=== PATIENT | female | born 1985 | race Two or more races ===

== ENCOUNTER 2016-11-03 08:59 | Emergency (ER) | payer MEDICAID ==
[2016-11-03 09:18] VITALS: TEMP 98.2; BMI 23.6
[2016-11-03] MEDS ORDERED: ONDANSETRON HCL 4 MG ODT TAB PO ONE (10:14)
[2016-11-03] MEDS ORDERED: HYDROmorphone 1 MG INJECTION IM ONE (10:14)
[2016-11-03] MEDS ORDERED: AMOXICILLIN/CLAVULANATE 875 MG TAB PO ONE (10:14)
[2016-11-03] MEDS ORDERED: PREDNISONE 20 MG TAB PO ONE (10:15)
--- NOTE | 2016-11-03 10:24 | EDPRACDOC ---
- General Information Chief Complaint: Headache Stated Complaint: SINUS PROBLEM Time Seen by Provider: 11/03/16 10:11 Information Source: Patient Mode Of Arrival: Car Home Medications: Home Medications Oxycodone HCl/Acetaminophen [Percocet 5-325 mg Tablet] 1 - 2 tab PO Q4H PRN #30 tab 09/05/15 Amoxicillin/Clavulanate Potas. [Augmentin] 875 mg PO BID #20 tab 11/03/16 Ketorolac Tromethamine [Toradol] 10 mg PO Q6H PRN #20 tab 11/03/16 Prednisone [Deltasone, Orasone] 20 mg PO BID #12 tab 11/03/16 Tramadol HCl [Ultram] 50 mg PO Q6H #14 tab 11/03/16 Allergies/Adverse Reactions: Allergies Allergy/AdvReac Type Severity Reaction Status Date / Time No Known Allergies Allergy Verified 11/03/16 09:34 - History of Present Illness Onset: 4 days HPI: PT PRESENTS DUE TO HEADACHE DUE TO FACIAL PRESSURE AND PAIN FOR THE PAST 4 DAYS. STATES SHE HAS BEEN RUNNING FEVER ON AND OFF, NAUSEATED, GREEN DRAINAGE. PT VERY UGLY WITH STAFF AND VERBALLY ABUSIVE. Location: Reports: Frontal Pain Quality: Reports: Moderate Modifying Factors: worse with: Medication, Exposure to light, Cold therapy, Immobilization, Movement, Rest Prior work up: Denies: NO, O, CT, LP, MRI, Neurologist Relevant History of: Reports: None Associated Signs and Symptoms: Reports: Facial Pain, Nausea/Vomiting ED Past Medical History - History Reviewed Yes Nurses notes reviewed and agree except as marked - Patient Medical History Cardiac History: Reports: Hypertension Psychological History: Denies: Depression Additional Past Medical History: OSTEOMYELITIS OF RIGHT FEMUR - Social Medical History Smoking Status: Former smoker EDM Review of Systems - Review of Systems ROS Negative Except as Marked: Yes All systems reviewed and were negative except as marked - Physical Exam Constitutional: Alert Oriented to: Time, Person, Place Last recorded Vital Signs: Last Vital Signs Temp 98.2 F 11/03/16 09:13 Pulse 61 11/03/16 09:13 Resp 18 11/03/16 09:13 BP 108/52 L 11/03/16 09:13 Pulse Ox 98 11/03/16 09:13 Oxygen Pulse Oxygen Saturation 98 O2 Device Oxygen Flow Rate Fraction of Inspired Oxygen ( FIO2) - HEENT Head: Normal ( normocephalic) Eye Exam: Normal (PERRL, EOMI, Sclera white) Oropharynx: Normal (Pharynx:Moist without exudate,Gums-no swelling) Tympanic Membrane: Normal Nose: Congestion Neck: Normal (FROM, trachea at midline) - Respiratory/Cardiovascular Respiratory: Normal - CTA (BBS clear to auscultation without adventitious sounds ) Cardiovascular: Normal (RRR without murmur, gallop or rub) - GI Auscultation: Normal (NABS) Palpation: Normal (Soft,No rebound or guarding, non distended) Tenderness: Non tender Thao's Sign: Negative Rectal Exam: Deferred - Musculoskeletal Back: Normal (Non-Tender) Extremities: Normal (Normal tone, Pulses 2+ No cyanosis or edema, FROM) - Integumentary Skin: Normal, Warm, Dry Lymphatics: Normal (no adenopathy) - Neurologic Memory Impaired: Normal Motor Function: Normal (Normal tone, Pulses 2+ No cyanosis or edema, FROM) Cranial Nerve: Normal (CN II-X11 intact sensation, strength 5/5) Cerebellar: Normal Mood Description: Normal Perception: Normal - Differential Diagnosis Sinusitis Decision Time to Discharge: 10:24 - Departure Disposition: Home Condition: Stable Final Diagnosis: Sinus headache Instructions: Sinusitis (ED) Education/Counseling Given To: Patient Education/Counseling Given Regarding: Diagnosis, Treatment, Prognosis, Follow Up Referrals: Ruben Bowen MD [Primary Care Provider] - One Week Prescriptions: New Amoxicillin/Clavulanate Potas. [Augmentin] 875 mg PO BID #20 tab Tramadol HCl [Ultram] 50 mg PO Q6H #14 tab Continue Ketorolac Tromethamine [Toradol] 10 mg PO Q6H PRN #20 tab PRN Reason: Pain Prednisone [Deltasone, Orasone] 20 mg PO BID #12 tab No Action Oxycodone HCl/Acetaminophen [Percocet 5-325 mg Tablet] 1 - 2 tab PO Q4H PRN # 30 tab PRN Reason: Pain Additional Instructions: INCREASE FLUID INTAKE. FOLLOW UP WITH PRIMARY CARE PROVIDER NEXT WEEK. TAKE ALL ANTIBIOTICS PRESCRIBED. RETURN TO THE ED FOR WORSENING SYMPTOMS OR CONCERNS.
[2016-11-03 11:07] VITALS: BP 106/63; PULSE 59
== END 2016-11-03 11:06 | disposition home or self-care (01) ==
LOC: ED 08:59
DX: R51 Headache (principal)
CPT/HCPCS: 96372; 99283; J1170; J3490